=== PATIENT | male | born 1975 | race Caucasian/White ===

== ENCOUNTER 2024-04-12 22:39 | Emergency (ER) | payer SELFPAY ==
[2024-04-12 23:49] LABS: BASOPHILS ABSOLUTE AUTO 0.19 K/uL (0.00-0.20); BASOPHILS PERCENT AUTO 1.7 % (0.0-1.0); EOSINOPHILS ABSOLUTE AUTO 0.22 K/uL (0.00-0.45); HEMATOCRIT 47.8 % (42.0-52.0); HEMOGLOBIN 16.4 g/dL (14.0-18.0); IMMATURE GRAN ABSOLUTE AUTO 0.46 K/uL (0.00-0.05); IMMATURE GRAN PERCENT AUTO 4.2 % (0.0-0.4); LYMPHOCYTES ABSOLUTE AUTO 3.28 K/uL (1.00-4.80); LYMPHOCYTES PERCENT AUTO 30.1 % (24.0-44.0); MEAN CORPUSCULAR HEMOGLOBIN 29.2 pg (28.0-32.0); MEAN CORPUSCULAR HGB CONC 34.3 g/dL (32.0-36.0); MEAN CORPUSCULAR VOLUME 85.2 fL (83.0-99.0); MEAN PLATELET VOLUME 10.5 fL (9.4-12.4); MONOCYTES ABSOLUTE AUTO 0.87 K/uL (0.00-0.80); NEUTROPHILS ABSOLUTE AUTO 5.87 K/uL (1.80-7.70); PLATELET COUNT,PLT 444 K/uL (150-400); RED BLOOD CELL COUNT 5.61 M/uL (4.52-5.90); WHITE BLOOD CELL COUNT,WBC 10.89 K/uL (3.9-11.3)
[2024-04-12 23:53] LABS: AMPHETAMINES SCREEN, URINE PRESUMPTIVE POSITIVE (CUTOFF=500); BARBITURATE SCREEN,URINE NEGATIVE (CUTOFF=200); BENZODIAZEPINES SCREEN,URINE NEGATIVE (CUTOFF=150); BUPRENORPHINE SCREEN,URINE NEGATIVE (CUTOFF=10); METHADONE SCREEN, URINE NEGATIVE (CUTOFF=200); METHAMPHETAMINES SCREEN, URINE PRESUMPTIVE POSITIVE (CUTOFF=500); OXYCODONE SCREEN,URINE NEGATIVE (CUT0FF=100); PCP SCREEN,URINE NEGATIVE (CUTOFF=25); THC SCREEN,URINE 20 NG/ML NEGATIVE (CUTOFF=50)
[2024-04-13 00:26] LABS: A/G RATIO 0.8 (0.9-1.6); ACETAMINOPHEN <2.0 ug/mL; ALANINE AMINOTRANSFERASE,ALT 78 IU/L (14-63); ALBUMIN 3.6 g/dL (3.4-5.0); ALKALINE PHOSPHATASE 104 U/L (46-116); ASPARTATE AMNIOTRANSFERASE,AST 74 IU/L (15-37); BILIRUBIN TOTAL 0.2 mg/dL (0.2-1.0); BLOOD UREA NITROGEN,BUN 30 mg/dL (7.0-18.0); CALCIUM 9.2 mg/dL (8.5-10.1); CARBON DIOXIDE,CO2 25.8 mmol/L (21.0-32.0); CHLORIDE,CL 105 mmol/L (98-107); CREATININE 1.4 mg/dL (0.8-1.3); EST CRCL DRUG DOSING (CG) 63.13 mL/min; ESTIMATED GFR 61 mL/min (>60); ETHANOL BLOOD MEDICAL 291 mg/dL; GLUCOSE RANDOM 137 mg/dL (74-106); MAGNESIUM 1.7 mg/dL (1.8-2.4); PROTEIN TOTAL,TP 8.1 g/dL (6.4-8.2); SALICYLATE 1.5 mg/dL (0.0-20.0); SODIUM,NA 143 mmol/L (136-148); TSH ULTRASENSITIVE 0.08 uIU/mL (0.36-3.74)
[2024-04-13] MEDS: Diazepam 2 MG Tab PO ONE (11:01)
== END 2024-04-13 11:15 ==
LOC: MW.ED 22:39
DX: R45.851 Suicidal ideations (principal); F10.139 Alcohol abuse with withdrawal, unspecified; Z79.899 Other long term (current) drug therapy
CPT/HCPCS: 36415; 80053; 80143; 80179; 80305; 80307; 83735; 84439; 84443; 85025; 93005; 96372; 99285; A9270; J3360